=== PATIENT | male | born 1985 | race Caucasian/White ===

== ENCOUNTER 2017-08-15 18:28 | Emergency (ER) | payer OTHER, BC ==
[2017-08-15 18:58] LABS: BASOPHIL (%) 0.4 % (0-1); EOSINOPHIL COUNT 0.1 K/uL (0-0.3); HEMATOCRIT 45.7 % (38.0-50.0); IMMATURE GRANULOCYTE (%) 0.1 % (0.0-0.7); LYMPHOCYTE (%) 26.2 % (15-42); LYMPHOCYTE COUNT 1.8 K/uL (1.0-2.8); MCH 30.7 PG (29.0-34.0); MCV 87.7 FL (86-99); MONOCYTE (%) 6.7 % (3-12); MONOCYTE COUNT 0.5 K/uL (0-0.8); NEUTROPHIL (%) 64.6 % (45-76); NEUTROPHIL COUNT 4.5 K/uL (1.8-6.4); PLATELET COUNT 258 K/uL (156-360); RBC DIS.WIDTH-CV 11.5 % (11.8-14.6); RED BLOOD COUNT 5.21 M/uL (4.00-5.50)
[2017-08-15 19:01] LABS: ALBUMIN 4.9 g/dL (3.2-4.8); CHLORIDE 105 mEq/L (99-109); POTASSIUM 3.8 mEq/L (3.7-5.4); SODIUM 140 mEq/L (136-147)
[2017-08-15 19:03] LABS: GLUCOSE 120 mg/dL (70-99)
[2017-08-15 19:05] LABS: TOTAL BILIRUBIN 0.6 mg/dL (0.0-1.0)
[2017-08-15 19:07] LABS: ALKALINE PHOSPHATASE 49 IU/L (3-129); CREATININE 1.1 mg/dL (0.6-1.3); GFR ESTIMATE (CALCULATED) > 59 mL/min/ (58.99-99999)
[2017-08-15 19:08] LABS: AST (GOT) 25 IU/L (2-34); UREA NITROGEN (BUN) 12 mg/dL (9-23)
[2017-08-15 19:09] LABS: DIRECT BILIRUBIN 0.2 mg/dL (0.0-0.3)
[2017-08-15 19:10] LABS: ALT (GPT) 37 IU/L (3-49)
[2017-08-16 16:30] LABS: HEPATITIS C ANTIBODY Nonreactive
[2017-08-16 16:31] LABS: HIV-1/2 AB/AG COMBO Nonreactive
[2017-08-16 16:32] LABS: HEPATITIS B SURFACE ANTIBODY REACTIVE
== END 2017-08-15 19:04 | disposition home or self-care (01) ==
LOC: EME 18:28
PROVIDERS: Physician Assistant
DX: S61.231A Puncture wound without foreign body of left index finger without damage to nail, initial encounter (principal)
CPT/HCPCS: 80048; 80076; 85025; 86703; 86706; 86803; 99281; 99283